=== PATIENT | male | born 1980 | race Caucasian/White ===

== ENCOUNTER 2018-06-06 23:59 | Emergency (ER) | payer OTHER ==
--- NOTE | 2018-06-07 00:12 | EDM.PDOC ---
ED HPI GENERAL MEDICAL PROBLEM - General Stated Complaint: PINCHED LEFT MIDDLE FINGER Time Seen by Provider: 06/07/18 00:10 Source of Information: Reports: Patient History Limitations: Reports: No Limitations - History of Present Illness INITIAL COMMENTS - FREE TEXT/NARRATIVE: Moe Smashed middle finger between two metal bars.While at work tonight,at [employer].Complains of moderate pain,and difficulty bending the finger Review of Systems - Review of Systems Review Of Systems: ROS reveals no pertinent complaints other than HPI. ED EXAM, GENERAL - Physical Exam Exam: See Below Free Text/Narrative:: Mild swelling /deformity noted to the distal phalanx and middle phalanx. Tender to palpation.Diminished range of motion- flexion Course - Vital Signs Text/Narrative:: XR neg - Orders/Labs/Meds Orders: Active Orders 24 hr Category Date Time Status Fingers Third Digit Lt F2 [CR] Stat Exams 06/07/18 00:08 Taken Departure - Departure Time of Disposition: 00:39 Disposition: Home, Self-Care 01 Clinical Impression: Finger injury - Discharge Information Referrals: PCP,Not In Area [Primary Care Provider] - - Problem List & Annotations (1) Finger injury SNOMED Code(s): 78741837 Code(s): S69.90XA - UNSP INJURY OF UNSP WRIST, HAND AND FINGER(S), INIT ENCNTR Status: Acute Qualifiers: Encounter type: initial encounter Laterality: left Qualified Code(s): S69.92XA - Unspecified injury of left wrist, hand and finger(s), initial encounter - Problem List Review Problem List Initiated/Reviewed/Updated: Yes - My Orders Last 24 Hours: My Active Orders 06/07/18 00:08 Fingers Third Digit Lt F2 [CR] Stat - Assessment/Plan Last 24 Hours: My Active Orders 06/07/18 00:08 Fingers Third Digit Lt F2 [CR] Stat Plan: Good taping. Ice,Motrin PRN
--- NOTE | 2018-06-07 11:32 | CR ---
INDICATION: Injury to tip of third digit. LEFT THIRD DIGIT: Three views of the left 3rd digit revealed a longitudinally oriented linear lucency along the ulnar side of the ungual tuft of the third digit. It extends slightly into the shaft and may represent a hairline fracture site. It is somewhat unusual in appearance in that it appears to have some cortication. This could represent an old fracture or unusual acute fracture. Followup study in 10-14 days should be helpful in confirming this finding. No other bone or joint abnormality was identified. IMPRESSION: Possible undisplaced linear - hairline - fracture of the ungual tuft and distalmost shaft of the distal phalanx of the 3rd left finger. Followup in 10-14 days should be confirmatory. MTDD
== END 2018-06-07 01:06 | disposition home or self-care (01) ==
LOC: FB.ED 23:59
DX: S69.92XA Unspecified injury of left wrist, hand and finger(s), initial encounter (principal); Y99.0 Civilian activity done for income or pay; W23.0XXA Caught, crushed, jammed, or pinched between moving objects, initial encounter
CPT/HCPCS: 73140-F2; 99283